=== PATIENT | female | born 1955 | race Caucasian/White ===

== ENCOUNTER 2017-05-09 10:08 | Emergency (ER) | payer OTHER ==
[~2017-05-09] VITALS: Ht 152.4 cm; Wt 86.2 kg
== END 2017-05-09 11:59 | disposition home or self-care (01) ==
LOC: ER 10:08
DX: B34.9 Viral infection, unspecified (principal)

== ENCOUNTER 2020-11-11 08:00 | Outpatient (CLI) | payer OTHER | END 2020-11-11 08:30 | disposition home or self-care (01) | LOC: PPH VACUNA 08:00 | DX: Z23 Encounter for immunization (principal) ==

== ENCOUNTER 2020-12-02 08:00 | Outpatient (CLI) | payer OTHER | END 2020-12-02 08:30 | disposition home or self-care (01) | LOC: PPH VACUNA 08:00 | PROVIDERS: ATTEND Emergency Medicine Pediatric Emergency Medicine | DX: Z23 Encounter for immunization (principal) ==

== ENCOUNTER 2021-05-05 08:00 | Outpatient (CLI) | payer OTHER | END 2021-05-05 08:30 | disposition home or self-care (01) | LOC: PPH VACUNA 08:00 | PROVIDERS: ATTEND Emergency Medicine Pediatric Emergency Medicine | DX: Z23 Encounter for immunization (principal) ==

== ENCOUNTER 2021-05-17 08:46 | Emergency (ER) | payer OTHER ==
[~2021-05-17] VITALS: Ht 160 cm; Wt 90.3 kg
[2021-05-17] MEDS ORDERED: ATORVASTATIN CA10 MG PO (08:53)
[2021-05-17] MEDS ORDERED: LEVOTHYROXINE25 MCG PO (08:53)
[2021-05-17] MEDS ORDERED: ORPHENADRINE C100 MG PO (09:51)
[2021-05-17] MEDS ORDERED: TYLENOL ARTHRI650 MG PO (09:59)
== END 2021-05-17 10:18 | disposition home or self-care (01) ==
LOC: ER 08:46
DX: M54.50 Low back pain, unspecified (principal); Z86.79 Personal history of other diseases of the circulatory system

== ENCOUNTER 2021-12-30 07:10 | Outpatient (CLI) | payer OTHER ==
[~2021-12-30 07:10] MED LIST: ATORVASTATIN CA10 MG PO; LEVOTHYROXINE25 MCG PO; ORPHENADRINE C100 MG PO; TYLENOL ARTHRI650 MG PO
== END 2021-12-30 07:29 | disposition home or self-care (01) ==
LOC: SONOGRAMA 07:10
PROVIDERS: ATTEND Internal Medicine Gastroenterology
DX: R10.9 Unspecified abdominal pain (principal); R13.10 Dysphagia, unspecified; R91.1 Solitary pulmonary nodule; E66.01 Morbid (severe) obesity due to excess calories; R06.02 Shortness of breath

== ENCOUNTER 2022-03-18 10:35 | Outpatient (CLI) | payer OTHER | END 2022-03-18 10:45 | disposition home or self-care (01) | LOC: PPH VACUNA 10:35 | PROVIDERS: ATTEND Emergency Medicine Pediatric Emergency Medicine | DX: Z23 Encounter for immunization (principal) ==

== ENCOUNTER 2022-07-21 07:48 | Outpatient (CLI) | payer OTHER | END 2022-07-21 08:09 | disposition home or self-care (01) | LOC: TOM 07:48 | PROVIDERS: ATTEND Internal Medicine Pulmonary Disease | DX: R91.1 Solitary pulmonary nodule (principal); R06.02 Shortness of breath; E66.01 Morbid (severe) obesity due to excess calories; E11.22 Type 2 diabetes mellitus with diabetic chronic kidney disease; N18.2 Chronic kidney disease, stage 2 (mild) ==

== ENCOUNTER 2022-12-30 07:14 | Outpatient (CLI) | payer OTHER | END 2022-12-30 08:03 | disposition home or self-care (01) | LOC: SONOGRAMA 07:14 | DX: K76.0 Fatty (change of) liver, not elsewhere classified (principal) ==

== ENCOUNTER 2023-04-08 07:49 | Outpatient (CLI) | payer OTHER | END 2023-04-08 07:55 | disposition home or self-care (01) | LOC: TOM 07:49 | PROVIDERS: ATTEND Internal Medicine Pulmonary Disease | DX: R91.1 Solitary pulmonary nodule (principal); Z77.22 Contact with and (suspected) exposure to environmental tobacco smoke (acute) (chronic); E66.01 Morbid (severe) obesity due to excess calories; S46.011A Strain of muscle(s) and tendon(s) of the rotator cuff of right shoulder, initial encounter ==

== ENCOUNTER 2023-10-19 08:48 | Outpatient (CLI) | payer OTHER | END 2023-10-19 08:50 | disposition home or self-care (01) | LOC: TOM 08:48 | PROVIDERS: ATTEND Internal Medicine Pulmonary Disease | DX: R91.1 Solitary pulmonary nodule (principal); Z77.22 Contact with and (suspected) exposure to environmental tobacco smoke (acute) (chronic); E66.01 Morbid (severe) obesity due to excess calories ==

== ENCOUNTER 2024-10-04 08:40 | Outpatient (CLI) | payer OTHER | END 2024-10-04 08:50 | disposition home or self-care (01) | LOC: TOM 08:40 | PROVIDERS: ATTEND Internal Medicine Pulmonary Disease | DX: R91.1 Solitary pulmonary nodule (principal) ==